=== PATIENT | male | born 2000 | race Two or more races ===

== ENCOUNTER 2018-10-15 19:12 | Outpatient (CLI) | payer MEDICAID | END 2018-10-15 19:13 | disposition critical access hospital (66) | LOC: EMS 19:12 | PROVIDERS: ATTEND Surgery | DX: T39.1X2A Poisoning by 4-Aminophenol derivatives, intentional self-harm, initial encounter (principal); S41.119A Laceration without foreign body of unspecified upper arm, initial encounter; X78.9XXA Intentional self-harm by unspecified sharp object, initial encounter; Y92.009 Unspecified place in unspecified non-institutional (private) residence as the place of occurrence of the external cause; R11.0 Nausea; R42 Dizziness and giddiness | CPT/HCPCS: A0425; A0429 ==

== ENCOUNTER 2018-10-15 19:32 | Inpatient (IN) | payer MEDICAID ==
--- NOTE | 2018-10-15 20:29 | ED Physician Documentation ---
PD HPI OVERDOSE - Stated complaint Stated Complaint: OD - Chief complaint Chief Complaint: MHE - Additional information Additional information: 17-year-old male presents the emergency department for evaluation after a overdose of Tylenol. The patient took roughly 20 tablets of 500 mg Tylenol at around 6 PM today. The patient then called the crisis hotline and a recommended emergent evaluation in the emergency department. The patient denies any other coingestions. The patient did cut his left forearm. No other area of injury. The patient does not answer questions regarding his suicidal intent. Symptoms are severe. No relieving factors. Unclear triggering factors Review of Systems Constitutional: denies: Fever, Chills, Fatigue Eyes: denies: Discharge Ears: denies: Ear pain Nose: denies: Congestion Throat: denies: Sore throat Cardiac: denies: Chest pain / pressure Respiratory: denies: Cough GI: denies: Abdominal Pain : denies: Dysuria Skin: denies: Rash Musculoskeletal: denies: Neck pain Neurologic: reports: Seizure. denies: Generalized weakness Immunocompromised: denies: Chemotherapy PD PAST MEDICAL HISTORY - Past Medical History Past Medical History: No - Past Surgical History Past Surgical History: No - Social History Does the pt smoke?: Yes Smoking Status: Current every day smoker Does the pt drink ETOH?: Yes ETOH Use: Beer Does the pt have substance abuse?: Yes Substance Use and Type: Marijuana - Immunizations Immunizations are current?: Yes Immunizations: TDAP current <10years - POLST Patient has POLST: No PD ED PE NORMAL - General General: Alert and oriented X 3, No acute distress - HEENT HEENT: Atraumatic, PERRL, EOMI, Ears normal - Cardiac Cardiac: RRR, Strong equal pulses - Respiratory Respiratory: No respiratory distress - Abdomen Abdomen: Soft, Non tender - Derm Derm: Normal color, Other (The patient has superficial abrasions on his left forearm, none of which are deep or in need of laceration repair) - Extremities Extremities: Normal ROM s pain - Neuro Neuro: Alert and oriented X 3, Normal speech - Psych Psych: Normal mood Results - Vitals Vitals: Vital Signs - 24 hr 10/15/18 10/15/18 19:35 19:42 Temperature 36.4 C L Heart Rate 83 83 Respiratory 18 18 Rate Blood Pressure 135/78 H 135/78 H O2 Saturation 100 100 Oxygen O2 Source Room air - Labs Labs: Laboratory Tests 10/15/18 10/15/18 10/15/18 20:25 20:25 22:00 WBC 7.1 RBC 5.09 Hgb 15.1 Hct 43.5 MCV 85.4 MCH 29.8 MCHC 34.9 RDW 13.8 Plt Count 240 MPV 8.3 Neut # (Auto) 4.9 Lymph # (Auto) 1.3 L Phelps # (Auto) 0.7 Eos # (Auto) 0.1 Baso # (Auto) 0.0 Absolute Nucleated RBC 0.01 Nucleated RBC % 0.1 Sodium 139 Potassium 3.6 Chloride 103 Carbon Dioxide 23 Anion Gap 13.0 BUN 12 Creatinine 0.9 Estimated GFR (MDRD) 109 Glucose 98 Calcium 8.8 Total Bilirubin 1.0 AST 22 ALT 19 Alkaline Phosphatase 59 Total Protein 7.5 Albumin 4.5 Globulin 3.0 Albumin/Globulin Ratio 1.5 Lipase 23 Salicylates < 6.0 Acetaminophen 254 H* 189 H* Ethyl Alcohol < 5.0 PD MEDICAL DECISION MAKING - ED course ED course: The patient reports taking the Tylenol at 6 PM, his 4-hour Tylenol level is over the recommended dose for treatment with N-acetylcysteine. The patient will be loaded in the emergency department with a 150 mg/kg dose of N-acetylcysteine. The patient will require admission to the hospital for the second and third doses and ongoing medical management. The patient will then require evaluation by social work for the suicide attempt. The findings and plan were discussed with the patient who understands and agrees to the plan. The case was discussed with the hospitalist Dr. Love who accepts the patient onto his service Departure - Departure Disposition: [facility] DC/Xfer Clinical Impression: Tylenol overdose Qualifiers: Encounter type: initial encounter Injury intent: intentional self-harm Qualified Code(s): T39.1X2A - Poisoning by 4-Aminophenol derivatives, intenti onal self-harm, initial encounter Suicidal overdose Qualifiers: Encounter type: initial encounter Qualified Code(s): T50.902A - Poisoning by unspecified drugs, medicaments and biological substances, intentional self-harm, initial encounter Condition: Fair
[2018-10-15 20:34] LABS: BASOPHILS % (AUTO) 0.7 %; EOSINOPHILS # (AUTO) 0.1 10^3/uL (0.0-0.7); EOSINOPHILS % (AUTO) 1.2 %; HGB - HEMOGLOBIN 15.1 g/dL (14.0-18.0); LYMPHOCYTES # (AUTO) 1.3 10^3/uL (1.5-3.5); LYMPHOCYTES % (AUTO) 18.7 %; MEAN CORPUSCULAR HEMOGLOBIN 29.8 pg (27.0-31.0); MEAN CORPUSCULAR HGB CONC 34.9 g/dL (32.0-36.0); MEAN CORPUSCULAR VOLUME 85.4 fL (80.0-94.0); MEAN PLATELET VOLUME 8.3 fL (7.4-11.4); MONOCYTES # (AUTO) 0.7 10^3/uL (0.0-1.0); MONOCYTES % (AUTO) 9.7 %; NEUTROPHILS # (AUTO) 4.9 10^3/uL (1.5-6.6); NEUTROPHILS % (AUTO) 69.7 %; PLT - PLATELET COUNT 240 10^3/uL (130-450); RED BLOOD COUNT 5.09 10^6/uL (4.70-6.10); RED CELL DISTRIBUTION WIDTH 13.8 % (12.0-15.0); WHITE BLOOD COUNT 7.1 x10^3/uL (4.8-10.8)
[2018-10-15 20:48] LABS: ALBUMIN 4.5 g/dL (3.2-5.5); ALBUMIN/GLOBULIN RATIO 1.5 (1.0-2.2); ALKALINE PHOSPHATASE 59 IU/L (42-121); ALT ALANINE AMINOTRANSFERASE 19 IU/L (10-60); AST ASPARTATE AMINOTRANSFERASE 22 IU/L (10-42); BUN - BLOOD UREA NITROGEN 12 mg/dL (6-20); CALCIUM 8.8 mg/dL (8.5-10.3); CARBON DIOXIDE - CO2 23 mmol/L (21-32); CHLORIDE 103 mmol/L (101-111); CREATININE 0.9 mg/dL (0.6-1.2); GFR - MDRD 109 (>89); GLUCOSE 98 mg/dL (70-100); LIPASE 23 U/L (22-51); SODIUM 139 mmol/L (135-145); TOTAL PROTEIN 7.5 g/dL (6.7-8.2)
[2018-10-15 20:54] LABS: SALICYLATE < 6.0 mg/dL
[2018-10-15 20:55] LABS: ACETAMINOPHEN 254 ug/mL (10-30)
[2018-10-15] MEDS ORDERED: ACETYLCYSTEINE IV STA (22:36)
[2018-10-15] MEDS ORDERED: DEXTROSE 5% IV STA (22:36)
[2018-10-15] MEDS ORDERED: ONDANSETRON ODT 4 MG TABLET TL PRN (23:40)
[2018-10-15] MEDS ORDERED: SODIUM CHLORIDE FLUSH 0.9% 10 ML SYRINGE IVP PRN (23:40)
[2018-10-16] MEDS ORDERED: ONDANSETRON 4 MG/2 ML VIAL IVP STA (00:06)
[2018-10-16] MEDS ORDERED: DEXTROSE 5% IV ONE ×2 (00:11→04:30)
[2018-10-16] MEDS ORDERED: ACETYLCYSTEINE IV ONE ×2 (00:11→04:30)
[2018-10-16] MEDS: SODIUM CHLORIDE FLUSH 0.9% 10 ML SYRINGE IVP SCH ×4 (00:43→20:26)
--- NOTE | 2018-10-16 00:47 | HISTORY & PHYSICAL EXAMINATION ---
Chief Complaint - Chief Complaint Chief Complaint: intentional tylenol overdose History of Present Illness - Admitted From Admitted From:: [facility] ED - History Obtained From Records Reviewed: yes History obtained from: patient - History of Present Illness HPI Comment/Other: Patient is a 17 y/o male who presented to the ED after ingesting 15-20 tablets of 500mg tylenol. He ingested this around 5pm on 10/15/18. Shortly afterwards, he tried to induce vomiting. Then he called the suicide prevention network and was advised to go to the ED. He presented to the ED around 8pm. Work up showed an initial tylenol level of 254. Two hours later it was 189. He states that he was having emotional distress at the time when he took the pill. He does not wish to talk about it any further. He also has anderson consistent with cutting on the ventral surface of his left forearm. He reports cutting when he was in middle school. He denies any medical or psychiatric diagnoses and has never been hospitalized in a psych facility. He states that he mostly sleeps a lot these days or watches a lot of [employer] because that is the channel his grandmother has on most days. He lives with his father and grandmother. He used to work out a lot and liked it but does not do so anymore because of lack of gym membership. He denies chest pain, CARLOS ALBERTO, abd pain. He was nauseous earlier. History - Past Medical History Cardiovascular: reports: None Respiratory: reports: None Neuro: reports: None Endocrine/Autoimmune: reports: None GI: reports: None SURGICAL TECHNICIAN: reports: None HEENT: reports: None Psych: reports: None Musculoskeletal: reports: None Derm: reports: None MRSA Hx?: No - Substance History Use: Uses substance without health or social issues: Tobacco, Cannabis - POLST Patient has POLST: No POLST Status: Full Code Meds/Allgy - Allergies Allergies/Adverse Reactions: Allergies Allergy/AdvReac Type Severity Reaction Status Date / Time No Known Drug Allergies Allergy Verified 10/15/18 23:22 Review of Systems - Constitutional Constitutional: denies: Fatigue, Fever, Chills - Eyes Eyes: denies: Pain, Blurred vision, Vision loss, Dipolpia - Ears, Nose & Throat Ears, Nose & Throat: denies: Vertigo, Sore throat - Cardiovascular Cariovascular: denies: Irregular heart rate, Palpitations, Chest pain, Edema, Lightheadedness, Syncope - Respiratory Respiratory: denies: Cough, Wheezing, SOB at rest, SOB with exertion - Gastrointestinal Gastrointestinal: reports: Nausea. denies: Abdominal pain, Constipation, Di arrhea, Vomiting - Genitourinary Genitourinary: denies: Dysuria, Frequency, Urgency, Hematuria - Musculoskeletal Musculoskeletal: denies: Back pain, Muscle aches, Stiffness - Integumentary Integumentary: denies: Rash, Pruritis, Lesions, Dryness - Neurological Neurological: denies: General weakness, Headache, Dizziness - Psychiatric Psychiatric: reports: Depression, Suicidal. denies: Delusions, Hallucinations - Endocrine Endocrine: denies: Polyuria, Polydypsia - Hematologic/Lymphatic Hematologic/Lymphatic: denies: Anemia, Bruising, Petechiae Prior Level of Functionality: He is independent of activities of daily living. He lives with his father and grandmother Exam - Vital Signs Reviewed Vital Signs: Yes Vital Signs: Vital Signs x48h Temp Pulse Resp BP Pulse Ox 10/16/18 00:00 97 16 107/63 100 10/15/18 23:14 87 16 131/64 H 100 10/15/18 19:42 83 18 135/78 H 100 10/15/18 19:35 36.4 C L 83 18 135/78 H 100 - Physical Exam General Appearance: positive: No acute distress, Alert, Other Eyes Bilateral: positive: Normal inspection, PERRL, EOMI ENT: positive: ENT inspection nml, Pharynx nml Neck: positive: Nml inspection, No JVD, Trachea midline Respiratory: positive: Chest non-tender, No respiratory distress, Breath sounds nml. negative: Wheezes, Rales, Rhonchi Cardiovascular: positive: Regular rate & rhythm, No murmur Abdomen: positive: Non-tender, No distention. negative: Guarding, Rebound Back: positive: Nml inspection Skin: positive: Color nml, Dry. negative: Cyanosis Extremities: positive: Non-tender, Nml appearance, Other (evidence of cutting on the ventral surface of left forearm) Neurologic/Psychiatric: positive: Oriented x3 Conclusion/Plan - Problem List (1) Tylenol overdose Conclusion/Plan: Patient admitted to the ICU N-acetylcysteine initiated per the 21 hour protocol Will check INR, tylenol level and CMP q12hrs X4 A tylenol level will be checked just 2 hours prior to the completion of the 16 hour administration. If ALT or tylenol level still elevated, continue N-acetylcysteine administration Zofran for nausea Other tox results pending Spoke with poison control who agree with plan Qualifiers: Encounter type: initial encounter Injury intent: intentional self-harm Qualified Code(s): T39.1X2A - Poisoning by 4-Aminophenol derivatives, intentional self-harm, initial encounter (2) Suicide attempt by acetaminophen overdose Conclusion/Plan: Patient placed on suicide precautions with safety checks Social work consulted for evaluation. Patient will likely need placement in inpatient psych once medically cleared. - Lab Results Fish Bones: 10/15/18 20:25 10/15/18 20:25 Core Measures - Anticipated LOS I expect patient to be DC'd or transferred within 96 hours.: Yes - DVT/VTE - Prophylaxis VTE/DVT Device ordered at admit?: Yes Not Ordered - Medical Reason: Contraindicated (tylenol overdose. Concern for hepatic injury)
[2018-10-16 02:38] LABS: MUDS CUTOFF CONCENTRATIONS CUTOFF CONC BELOW:
[2018-10-16 02:50] LABS: AMPHETAMINE SCREEN,URINE POSITIVE (NEGATIVE); BENZODIAZEPINES SCREEN, URINE POSITIVE (NEGATIVE); COCAINE SCREEN URINE NEGATIVE (NEGATIVE); METHADONE SCREEN, URINE NEGATIVE (NEGATIVE); METHAMPHETAMINES SCREEN, URINE POSITIVE (NEGATIVE); OPIATE SCREEN, URINE NEGATIVE (NEGATIVE); OXYCODONE SCREEN, URINE NEGATIVE (NEGATIVE); PROPOXYPHENE SCREEN, URINE NEGATIVE (NEGATIVE); TRICYCLIC ANTIDEPRESSANT,URINE NEGATIVE (NEGATIVE)
[2018-10-16 05:26] LABS: BASOPHILS % (AUTO) 0.4 %; HGB - HEMOGLOBIN 15.3 g/dL (14.0-18.0); LYMPHOCYTES % (AUTO) 11.2 %; MEAN CORPUSCULAR HEMOGLOBIN 29.2 pg (27.0-31.0); MEAN CORPUSCULAR HGB CONC 33.6 g/dL (32.0-36.0); MEAN CORPUSCULAR VOLUME 86.9 fL (80.0-94.0); MEAN PLATELET VOLUME 8.6 fL (7.4-11.4); MONOCYTES # (AUTO) 0.6 10^3/uL (0.0-1.0); MONOCYTES % (AUTO) 6.4 %; NEUTROPHILS # (AUTO) 7.3 10^3/uL (1.5-6.6); PLT - PLATELET COUNT 257 10^3/uL (130-450); RED BLOOD COUNT 5.24 10^6/uL (4.70-6.10); RED CELL DISTRIBUTION WIDTH 13.7 % (12.0-15.0); WHITE BLOOD COUNT 8.9 x10^3/uL (4.8-10.8)
[2018-10-16 05:37] LABS: INR 1.4 (0.8-1.2); PT - PROTHROMBIN TIME 15.9 secs (9.9-12.6)
[2018-10-16 05:38] LABS: ALBUMIN 4.1 g/dL (3.2-5.5); ALBUMIN/GLOBULIN RATIO 1.2 (1.0-2.2); BILIRUBIN,TOTAL 1.3 mg/dL (0.2-1.0); CALCIUM 8.9 mg/dL (8.5-10.3); CREATININE 0.8 mg/dL (0.6-1.2); TOTAL PROTEIN 7.4 g/dL (6.7-8.2)
[2018-10-16] MEDS ORDERED: POTASSIUM CHLORIDE 20 MEQ TABLET PO ONE (07:00)
--- NOTE | 2018-10-16 13:15 | PROVIDER PROGRESS NOTE ---
Assessment/Plan - Problem List (1) Suicidal overdose Qualifiers: Encounter type: subsequent encounter Qualified Code(s): T50.902D - Poisoning by unspecified drugs, medicaments and biological substances, intentional self-harm, subsequent encounter Assessment/Plan: Social Work will be seeing patient when he is medically cleared, probably tomorrow. (2) Tylenol overdose Qualifiers: Encounter type: subsequent encounter Injury intent: intentional self-harm Qualified Code(s): T39.1X2D - Poisoning by 4-Aminophenol derivatives, intentional self-harm, subsequent encounter Assessment/Plan: Pt on Mucomyst iv. Tylenol level pending to determine duration of Mucomyst treatment. Monitor LFTs He wants a Nicotine patch but that is liver metabolized, so will hold off until the Tylenol levels and LFTs are stabilized. Will advance diet from npo, as tolerated. Antiemetics prn. (3) Hypokalemia Assessment/Plan: Replace K. Follow BMP. - Current Meds Current Meds: Current Medications Generic Name Dose Route Start Last Admin Trade Name Freq PRN Reason Stop Dose Admin Acetylcysteine 7,711 mg/ 1,038.555 mls @ 62.5 mls/hr 10/16/18 04:30 10/16/18 07:53 Dextrose IV 10/16/18 21:07 62.5 mls/hr ONCE ONE Infusion Sodium Chloride 10 ml 10/16/18 01:00 10/16/18 08:30 Normal Saline Flush 0.9% IVP 10 ml 0100,0900,1700 PAPO Administration Sodium Chloride 10 ml 10/15/18 23:40 10/16/18 01:33 Normal Saline Flush 0.9% IVP 10 ml PRN PRN Administration NEEDED PER PROVIDER ORDERS - Lab Result Fish Bone Diagrams: 10/16/18 05:05 10/16/18 05:05 - Additional Planning My Orders: My Active Orders 10/16/18 Dinner DIET [Soft (Low Fiber) Diet] [DIET] 10/16/18 Lunch Clear Liquid Diet [DIET] 10/17/18 09:00 Polyethylene Glycol 3350 [Miralax] 17 gm PO DAILY 10/17/18 Breakfast DIET [Regular Diet] [DIET] Subjective - Subjective Patient Reports: Resting Comfortably Objective Vital Signs: Vital Signs - 24 hr 02/16/19 02/16/19 02/16/19 19:35 19:42 23:14 Temperature 36.4 C L Heart Rate 83 83 87 Heart Rate [ Monitoring electrodes] Respiratory 18 18 16 Rate Blood Pressure 135/78 H 135/78 H 131/64 H Blood Pressure [Left Brachial artery] O2 Saturation 100 100 100 10/16/18 10/16/18 10/16/18 00:00 01:00 02:00 Temperature 36.6 C Heart Rate 97 Heart Rate [ 78 58 L Monitoring electrodes] Respiratory 16 22 14 Rate Blood Pressure 107/63 Blood Pressure 123/75 111/70 [Left Brachial artery] O2 Saturation 100 100 98 10/16/18 10/16/18 10/16/18 03:00 04:00 05:00 Temperature 36.8 C Heart Rate Heart Rate [ 68 64 70 Monitoring electrodes] Respiratory 18 15 16 Rate Blood Pressure Blood Pressure 103/54 L 116/65 108/62 [Left Brachial artery] O2 Saturation 100 97 97 10/16/18 10/16/18 10/16/18 06:23 08:00 09:00 Temperature 36.6 C Heart Rate Heart Rate [ 77 85 54 L Monitoring electrodes] Respiratory 16 22 19 Rate Blood Pressure Blood Pressure 116/52 L 133/72 H 114/65 [Left Brachial artery] O2 Saturation 98 100 99 10/16/18 10/16/18 10/16/18 10:00 11:00 12:15 Temperature 98.1 C H Heart Rate Heart Rate [ 54 L 57 L 88 Monitoring electrodes] Respiratory 13 15 16 Rate Blood Pressure Blood Pressure 99/72 117/64 [Left Brachial artery] O2 Saturation 99 98 100 Oxygen O2 Source Room air I&O (Last 24 Hrs): Intake and Output Totals x24h 10/14/18 10/15/18 10/16/18 23:59 23:59 23:59 Intake Total 1974.193 Output Total 450 Balance 1524.193 General: Alert, Oriented x3 HEENT: Mucous membr. moist/pink Neck: Supple Neuro: Alert Cardiovascular: Regular rate Respiratory: No respiratory distress Abdomen: Soft Extremities: Other (Several cuts in inner L forarm, not red or warm) - Results Results: Laboratory Results WBC 8.9 x10^3/uL (4.8-10.8) 10/16/18 05:05 RBC 5.24 10^6/uL (4.70-6.10) 10/16/18 05:05 Hgb 15.3 g/dL (14.0-18.0) 10/16/18 05:05 Hct 45.5 % (42.0-52.0) 10/16/18 05:05 MCV 86.9 fL (80.0-94.0) 10/16/18 05:05 MCH 29.2 pg (27.0-31.0) 10/16/18 05:05 MCHC 33.6 g/dL (32.0-36.0) 10/16/18 05:05 RDW 13.7 % (12.0-15.0) 10/16/18 05:05 Plt Count 257 10^3/uL (130-450) 10/16/18 05:05 MPV 8.6 fL (7.4-11.4) 10/16/18 05:05 Neut # (Auto) 7.3 10^3/uL (1.5-6.6) H 10/16/18 05:05 Lymph # (Auto) 1.0 10^3/uL (1.5-3.5) L 10/16/18 05:05 Morris # (Auto) 0.6 10^3/uL (0.0-1.0) 10/16/18 05:05 Eos # (Auto) 0.0 10^3/uL (0.0-0.7) 10/16/18 05:05 Baso # (Auto) 0.0 10^3/uL (0.0-0.1) 10/16/18 05:05 Absolute Nucleated RBC 0.00 x10^3/uL 10/16/18 05:05 Nucleated RBC % 0.0 /100WBC 10/16/18 05:05 PT 15.9 secs (9.9-12.6) H 10/16/18 05:05 INR 1.4 (0.8-1.2) H 10/16/18 05:05 Sodium 132 mmol/L (135-145) L 10/16/18 05:05 Potassium 3.3 mmol/L (3.5-5.0) L 10/16/18 05:05 Chloride 101 mmol/L (101-111) 10/16/18 05:05 Carbon Dioxide 22 mmol/L (21-32) 10/16/18 05:05 Anion Gap 9.0 (6-13) 10/16/18 05:05 BUN 13 mg/dL (6-20) 10/16/18 05:05 Creatinine 0.8 mg/dL (0.6-1.2) 10/16/18 05:05 Estimated GFR (MDRD) 125 (>89) 10/16/18 05:05 Glucose 124 mg/dL (70-100) H 10/16/18 05:05 Calcium 8.9 mg/dL (8.5-10.3) 10/16/18 05:05 Total Bilirubin 1.3 mg/dL (0.2-1.0) H 10/16/18 05:05 AST 19 IU/L (10-42) 10/16/18 05:05 ALT 21 IU/L (10-60) 10/16/18 05:05 Alkaline Phosphatase 48 IU/L (42-121) 10/16/18 05:05 Total Protein 7.4 g/dL (6.7-8.2) 10/16/18 05:05 Albumin 4.1 g/dL (3.2-5.5) 10/16/18 05:05 Globulin 3.3 g/dL (2.1-4.2) 10/16/18 05:05 Albumin/Globulin Ratio 1.2 (1.0-2.2) 10/16/18 05:05 Lipase 23 U/L (22-51) 10/15/18 20:25 Salicylates < 6.0 mg/dL 10/15/18 20:25 Urine Opiates Screen NEGATIVE (NEGATIVE) 10/16/18 02:37 Ur Oxycodone Screen NEGATIVE (NEGATIVE) 10/16/18 02:37 Urine Methadone Screen NEGATIVE (NEGATIVE) 10/16/18 02:37 Ur Propoxyphene Screen NEGATIVE (NEGATIVE) 10/16/18 02:37 Acetaminophen 15 ug/mL (10-30) 10/16/18 10:12 Ur Barbiturates Screen NEGATIVE (NEGATIVE) 10/16/18 02:37 Ur Tricyclics Screen NEGATIVE (NEGATIVE) 10/16/18 02:37 Ur Phencyclidine Scrn NEGATIVE (NEGATIVE) 10/16/18 02:37 Ur Amphetamine Screen POSITIVE (NEGATIVE) H 10/16/18 02:37 U Methamphetamines Scrn POSITIVE (NEGATIVE) H 10/16/18 02:37 U Benzodiazepines Scrn POSITIVE (NEGATIVE) H 10/16/18 02:37 Urine Cocaine Screen NEGATIVE (NEGATIVE) 10/16/18 02:37 U Cannabinoids Screen POSITIVE (NEGATIVE) H 10/16/18 02:37 Ethyl Alcohol < 5.0 mg/dL 10/15/18 20:25 MRSA Surveill Initial NEGATIVE (NEGATIVE) 10/16/18 00:40
[2018-10-16 18:32] LABS: INR 1.4 (0.8-1.2); PT - PROTHROMBIN TIME 15.3 secs (9.9-12.6)
[2018-10-16 18:39] LABS: ALBUMIN 4.2 g/dL (3.2-5.5); ALBUMIN/GLOBULIN RATIO 1.3 (1.0-2.2); BILIRUBIN,TOTAL 0.9 mg/dL (0.2-1.0); CALCIUM 8.9 mg/dL (8.5-10.3); CREATININE 0.9 mg/dL (0.6-1.2); TOTAL PROTEIN 7.4 g/dL (6.7-8.2)
[2018-10-17 05:06] LABS: BASOPHILS # (AUTO) 0.1 10^3/uL (0.0-0.1); BASOPHILS % (AUTO) 0.8 %; EOSINOPHILS # (AUTO) 0.2 10^3/uL (0.0-0.7); EOSINOPHILS % (AUTO) 2.3 %; HGB - HEMOGLOBIN 15.1 g/dL (14.0-18.0); LYMPHOCYTES # (AUTO) 2.3 10^3/uL (1.5-3.5); LYMPHOCYTES % (AUTO) 33.3 %; MEAN CORPUSCULAR HEMOGLOBIN 28.9 pg (27.0-31.0); MEAN CORPUSCULAR HGB CONC 33.1 g/dL (32.0-36.0); MEAN CORPUSCULAR VOLUME 87.5 fL (80.0-94.0); MEAN PLATELET VOLUME 8.5 fL (7.4-11.4); MONOCYTES # (AUTO) 0.5 10^3/uL (0.0-1.0); MONOCYTES % (AUTO) 6.8 %; NEUTROPHILS % (AUTO) 56.8 %; PLT - PLATELET COUNT 215 10^3/uL (130-450); RED BLOOD COUNT 5.23 10^6/uL (4.70-6.10)
[2018-10-17 05:09] LABS: INR 1.3 (0.8-1.2); PT - PROTHROMBIN TIME 15.1 secs (9.9-12.6)
[2018-10-17 05:16] LABS: ALBUMIN 4.1 g/dL (3.2-5.5); ALBUMIN/GLOBULIN RATIO 1.5 (1.0-2.2); BILIRUBIN,TOTAL 0.8 mg/dL (0.2-1.0); CALCIUM 8.9 mg/dL (8.5-10.3); CREATININE 0.8 mg/dL (0.6-1.2); TOTAL PROTEIN 6.9 g/dL (6.7-8.2)
[2018-10-17] MEDS: POLYETHYLENE GLYCOL 3350 17 GM PACKET PO SCH (08:12)
[2018-10-17] MEDS: SODIUM CHLORIDE FLUSH 0.9% 10 ML SYRINGE IVP SCH ×2 (08:12→16:10)
[2018-10-17] MEDS: NICOTINE 14 MG PATCH TOP SCH (08:12)
--- NOTE | 2018-10-17 11:55 | PROVIDER PROGRESS NOTE ---
Assessment/Plan - Problem List (1) Suicidal overdose Qualifiers: Encounter type: subsequent encounter Qualified Code(s): T50.902D - Poisoning by unspecified drugs, medicaments and biological substances, intentional self-harm, subsequent encounter Assessment/Plan: The [employer] is working on his admitted depression; he stopped taking his anti-depressants several mos ago, and will need an outpatient provider/mental health Counselor. (2) Polysubstance abuse Assessment/Plan: Meth, Benzos along with the Acetaminophen was present in his drug screen here. He told the [employer] today, that he is trying to remove himself from the toxic environment he currently has, living with his drug-using father and elderly grandmother who is of no help. The biologic mother is flying in later today or tomorrow to be involved in his care. There is no safe discharge for him today. (3) Tylenol overdose Qualifiers: Encounter type: subsequent encounter Injury intent: intentional self-harm Qualified Code(s): T39.1X2D - Poisoning by 4-Aminophenol derivatives, intentional self-harm, subsequent encounter Assessment/Plan: Resolved, after Mucomyst infusion (4) Hypokalemia Assessment/Plan: Resolved - Current Meds Current Meds: Current Medications Generic Name Dose Route Start Last Admin Trade Name Freq PRN Reason Stop Dose Admin Nicotine 1 patch 10/17/18 09:00 10/17/18 08:12 Nicoderm TOP 1 patch DAILY PAPO Administration Polyethylene Glycol 17 gm 10/17/18 09:00 10/17/18 08:12 Miralax PO 17 gm DAILY PAPO Administration Sodium Chloride 10 ml 10/16/18 01:00 10/17/18 08:12 Normal Saline Flush 0.9% IVP 10 ml 0100,0900,1700 PAPO Administration Sodium Chloride 10 ml 10/15/18 23:40 10/16/18 01:33 Normal Saline Flush 0.9% IVP 10 ml PRN PRN Administration NEEDED PER PROVIDER ORDERS - Lab Result Fish Bone Diagrams: 10/17/18 04:42 10/17/18 04:42 - Additional Planning My Orders: My Active Orders 10/17/18 09:00 Polyethylene Glycol 3350 [Miralax] 17 gm PO DAILY 10/17/18 Breakfast DIET [Regular Diet] [DIET] Subjective - Subjective Patient Reports: No Complaints Nursing Reports: Other (He opened up to the Social Woker today, after he was medically cleared) Objective Vital Signs: Vital Signs - 24 hr 10/16/18 10/16/18 10/16/18 12:15 13:00 15:00 Temperature 36.7 C 37.1 C Heart Rate [ 88 66 63 Monitoring electrodes] Respiratory 16 22 15 Rate Blood Pressure 117/64 121/76 96/56 L [Left Brachial artery] O2 Saturation 100 100 98 10/16/18 10/16/18 10/16/18 17:00 18:00 19:16 Temperature 36.7 C Heart Rate [ 89 77 70 Monitoring electrodes] Respiratory 23 18 16 Rate Blood Pressure 133/78 H 101/59 L [Left Brachial artery] O2 Saturation 96 99 98 10/17/18 10/17/18 10/17/18 00:23 04:33 08:08 Temperature 37.0 C 37.1 C 36.7 C Heart Rate [ 58 L 48 L 75 Monitoring electrodes] Respiratory 18 11 L 13 Rate Blood Pressure 102/54 L 111/56 L 110/74 [Left Brachial artery] O2 Saturation 98 98 97 Oxygen O2 Source Room air I&O (Last 24 Hrs): Intake and Output Totals x24h 10/15/18 10/16/18 10/17/18 23:59 23:59 23:59 Intake Total 3655.665 880 Output Total 2600 Balance 1055.665 880 General: Alert, Oriented x3 HEENT: Mucous membr. moist/pink Neck: Supple Neuro: Non Focal Cardiovascular: Regular rate Respiratory: No respiratory distress Abdomen: Soft Extremities: No edema - Results Results: Laboratory Results WBC 7.0 x10^3/uL (4.8-10.8) 10/17/18 04:42 RBC 5.23 10^6/uL (4.70-6.10) 10/17/18 04:42 Hgb 15.1 g/dL (14.0-18.0) 10/17/18 04:42 Hct 45.8 % (42.0-52.0) 10/17/18 04:42 MCV 87.5 fL (80.0-94.0) 10/17/18 04:42 MCH 28.9 pg (27.0-31.0) 10/17/18 04:42 MCHC 33.1 g/dL (32.0-36.0) 10/17/18 04:42 RDW 14.0 % (12.0-15.0) 10/17/18 04:42 Plt Count 215 10^3/uL (130-450) 10/17/18 04:42 MPV 8.5 fL (7.4-11.4) 10/17/18 04:42 Neut # (Auto) 4.0 10^3/uL (1.5-6.6) 10/17/18 04:42 Lymph # (Auto) 2.3 10^3/uL (1.5-3.5) 10/17/18 04:42 [place] # (Auto) 0.5 10^3/uL (0.0-1.0) 10/17/18 04:42 Eos # (Auto) 0.2 10^3/uL (0.0-0.7) 10/17/18 04:42 Baso # (Auto) 0.1 10^3/uL (0.0-0.1) 10/17/18 04:42 Absolute Nucleated RBC 0.00 x10^3/uL 10/17/18 04:42 Nucleated RBC % 0.1 /100WBC 10/17/18 04:42 PT 15.1 secs (9.9-12.6) H 10/17/18 04:42 INR 1.3 (0.8-1.2) H 10/17/18 04:42 Sodium 137 mmol/L (135-145) 10/17/18 04:42 Potassium 3.9 mmol/L (3.5-5.0) 10/17/18 04:42 Chloride 105 mmol/L (101-111) 10/17/18 04:42 Carbon Dioxide 24 mmol/L (21-32) 10/17/18 04:42 Anion Gap 8.0 (6-13) 10/17/18 04:42 BUN 12 mg/dL (6-20) 10/17/18 04:42 Creatinine 0.8 mg/dL (0.6-1.2) 10/17/18 04:42 Estimated GFR (MDRD) 125 (>89) 10/17/18 04:42 Glucose 94 mg/dL (70-100) 10/17/18 04:42 Calcium 8.9 mg/dL (8.5-10.3) 10/17/18 04:42 Total Bilirubin 0.8 mg/dL (0.2-1.0) 10/17/18 04:42 AST 25 IU/L (10-42) 10/17/18 04:42 ALT 30 IU/L (10-60) 10/17/18 04:42 Alkaline Phosphatase 51 IU/L (42-121) 10/17/18 04:42 Total Protein 6.9 g/dL (6.7-8.2) 10/17/18 04:42 Albumin 4.1 g/dL (3.2-5.5) 10/17/18 04:42 Globulin 2.8 g/dL (2.1-4.2) 10/17/18 04:42 Albumin/Globulin Ratio 1.5 (1.0-2.2) 10/17/18 04:42 Lipase 23 U/L (22-51) 10/15/18 20:25 Salicylates < 6.0 mg/dL 10/15/18 20:25 Urine Opiates Screen NEGATIVE (NEGATIVE) 10/16/18 02:37 Ur Oxycodone Screen NEGATIVE (NEGATIVE) 10/16/18 02:37 Urine Methadone Screen NEGATIVE (NEGATIVE) 10/16/18 02:37 Ur Propoxyphene Screen NEGATIVE (NEGATIVE) 10/16/18 02:37 Acetaminophen < 10 ug/mL (10-30) L 10/17/18 04:42 Ur Barbiturates Screen NEGATIVE (NEGATIVE) 10/16/18 02:37 Ur Tricyclics Screen NEGATIVE (NEGATIVE) 10/16/18 02:37 Ur Phencyclidine Scrn NEGATIVE (NEGATIVE) 10/16/18 02:37 Ur Amphetamine Screen POSITIVE (NEGATIVE) H 10/16/18 02:37 U Methamphetamines Scrn POSITIVE (NEGATIVE) H 10/16/18 02:37 U Benzodiazepines Scrn POSITIVE (NEGATIVE) H 10/16/18 02:37 Urine Cocaine Screen NEGATIVE (NEGATIVE) 10/16/18 02:37 U Cannabinoids Screen POSITIVE (NEGATIVE) H 10/16/18 02:37 Ethyl Alcohol < 5.0 mg/dL 10/15/18 20:25 MRSA Surveill Initial NEGATIVE (NEGATIVE) 10/16/18 00:40
[2018-10-17] MEDS: CITALOPRAM 10 MG TABLET PO SCH (16:57)
[2018-10-18] MEDS: SODIUM CHLORIDE FLUSH 0.9% 10 ML SYRINGE IVP SCH ×2 (00:29→08:25)
[2018-10-18] MEDS: CITALOPRAM 10 MG TABLET PO SCH (08:24)
[2018-10-18] MEDS: NICOTINE 14 MG PATCH TOP SCH (08:44)
[2018-10-18] MEDS: POLYETHYLENE GLYCOL 3350 17 GM PACKET PO SCH (08:45)
--- NOTE | 2018-10-18 10:15 | Discharge Plan ---
Discharge Plan Disposition: [facility]/Unit DC/Xfer Condition: Fair Prescriptions: Citalopram [CeleXA] 20 mg PO DAILY #30 tablet Nicotine 14 mg Patch [Nicoderm] 1 patch TOP DAILY #30 patch Diet: Regular Activity Restrictions: Activity as Tolerated Shower Restrictions: No Driving Restrictions: No Instruction Topics: Citalopram tablets, Acetylcysteine solution for injection, Nicotine skin patches Additional Instructions or Follow Up instructions: You were admitted to the hospital because of an intentional overdose with Tylenol. You received treatment for that with a special medication to prevent liver failure from that. You have been started on a new medication for depression. That is citalopram. You are also on a medication to help you stop smoking which is a nicotine patch. Both of these been called into the pharmacy for a 30-day supply. You are now being transferred to a voluntary treatment for depression at an appropriate facility. When you get out of that facility please follow-up with any psychiatric or mental health care they prescribed. We would also [place] that [place] No Smoking: If you smoke, Please STOP! Call for help.
[2018-10-18 12:42] VITALS: BP 127/77
--- NOTE | 2018-10-20 03:20 | DISCHARGE SUMMARY ---
Physician: Gabriela Gauthier MD DATE OF ADMISSION: 10/15/2018 DATE OF DISCHARGE: 10/18/2018 DISCHARGE DIAGNOSES 1. Suicidal overdose. 2. Acetaminophen overdose. 3. Polysubstance abuse. 4. Methamphetamine abuse. PRINCIPAL PROCEDURE: ICU observation. HOSPITAL COURSE: The patient is a 17-year-old male who presented to the emergency room after ingesting 50-20 tablets of Tylenol. He ingested this around 5 p.m. This was on October 15. Shortly afterwards, he tried to induce vomiting. He called the [facility] prevention [facility] and was advised to go to the emergency room. He presented to the emergency room around 8 p.m. Initial workup showed Tylenol level of 254, and 2 hours later it was 189. His past medical history is that of depression, cutting when in middle school. He denies any medical or psychiatric diagnoses and has never been hospitalized in a psych facility. He lives with his father and grandmother. He is not getting along with them right now. The patient was admitted as a suicide attempt with the Tylenol. His urine tox screen was positive for amphetamines, methamphetamines, benzodiazepines, cannabinoids. Acetaminophen level was 254. He was started on N-acetylcysteine. After 10 hours, the level was 15. By the morning of the , he was less than 10. While he did have some mild hypokalemia on the second day of stay, that resolved with supplementation. INR was 1.3 to 1.4. CBC was normal. Once he was medically stable, he was evaluated by Social Work. He was felt to be a candidate for crisis intervention. As such, he was transferred to a psych facility, voluntary admission. We were asked to send over his medications to a pharmacy so that his family could pick them up of citalopram 20 mg daily and a nicotine patch 14 mg daily. PHYSICAL EXAMINATION VITAL SIGNS: At discharge, temperature was 36.6, pulse 69, blood pressure 124/77, respirations 12, 99% on room air. Slender, alert, young, white male. Muted, withdrawn affect. Cooperative. LUNGS: Clear to auscultation and percussion. PMI is normally placed with a regular rate and rhythm. ABDOMEN: Soft and nontender. Normal bowel sounds. EXTREMITIES: Without edema. NEUROLOGIC: He demonstrates his ability to sit up in bed, stand to transfer, and ambulate in the room without any assistance or ataxia. He is able to go to the bathroom on his own. Breakfast was served to him on the day of discharge, and he was able to feed himself without any difficulty. Greater than 30 minutes was spent coordinating discharge. TD: 10/19/2018 21:40 CAPO
== END 2018-10-18 13:20 | DRG 918 ==
LOC: ED 19:32 → ICU 23:40 → MS3 10-17 08:02 → UNDODISIN 10-18 13:20
PROVIDERS: ADMIT Internal Medicine; ATTEND Internal Medicine
DX: T39.1X2A Poisoning by 4-Aminophenol derivatives, intentional self-harm, initial encounter (principal); R11.0 Nausea; F15.10 Other stimulant abuse, uncomplicated; F19.10 Other psychoactive substance abuse, uncomplicated; E87.6 Hypokalemia; F32.9 Major depressive disorder, single episode, unspecified; F17.200 Nicotine dependence, unspecified, uncomplicated; Z74.2 Need for assistance at home and no other household member able to render care; Z72.89 Other problems related to lifestyle
CPT/HCPCS: 36415; 80053; 80306; 80307; 80320; 80329; 83690; 85025; 85610; 87150; 96365; 99285

== ENCOUNTER 2018-11-08 08:46 | Emergency (ER) | payer MEDICAID ==
[2018-11-08 09:41] VITALS: BP 120/78
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
== END 2018-11-08 10:57 | disposition home or self-care (01) ==
LOC: ED 08:46
DX: S06.0X0A Concussion without loss of consciousness, initial encounter (principal); W22.8XXA Striking against or struck by other objects, initial encounter; Y92.410 Unspecified street and highway as the place of occurrence of the external cause; F17.200 Nicotine dependence, unspecified, uncomplicated
CPT/HCPCS: 70450; 99283